=== PATIENT | female | born 1995 | race Caucasian/White ===

== ENCOUNTER 2018-05-07 18:21 | Emergency (ER) | payer OTHER ==
[~2018-05-07] VITALS: Ht 177.8 cm; Wt 120.3 kg
[2018-05-07 18:25] VITALS: BP 108/75
--- NOTE | 2018-05-07 18:28 | NUR ---
AMBULATES WITH BACK TO THE LOBBY
--- NOTE | 2018-05-07 20:24 | NUR ---
PT AMBULATED TO BED 06.
--- NOTE | 2018-05-07 20:25 | NUR ---
PATIENT PRESENTS TO ED WITH C/O PAIN TO THE THROAT. PT ALSO HAS A HEADACHE X 1 DAY. PAIN LEVEL AT THIAS TIME IAS 11/17. PT STATES NO FEVER AT THIS TIME. PT STATES SHE IS ALMOST 6 [id number] WEEKS PT DOES NOT REMEMBER HER LMP. PT STATED SHE IS UNDER AN OBGYN CARE.PT HAS SOME REDNESS TO THE THROAT. PT IS ABLE TO SWALLOW. SKIN IS PINK/WARM/DRY; AAOX4 WITH EVEN AND STEADY GAIT; VSS; PATIENT POSITIONED FOR COMFORT; HOB ELEVATED; BEDRAILS UP X2; BED DOWN. ER MD MADE AWARE OF PT STATUS.
--- NOTE | 2018-05-07 21:51 | NUR ---
Dr. Self evaluating patient at bedside.
[2018-05-07 22:00] VITALS: BP 96/63
--- NOTE | 2018-05-07 22:00 | NUR ---
Patient discharged with v/s stable. Written and verbal after care instructions given and explained. Patient alert, oriented and verbalized understanding of instructions. Ambulatory with steady gait. All questions addressed prior to discharge. ID band removed. Patient advised to follow up with PMD. Rx of Tamiflu given. Patient educated on indication of medication including possible reaction and side effects. Opportunity to ask questions provided and answered.
== END 2018-05-07 22:00 | disposition home or self-care (01) ==
LOC: MED 18:21
DX: O98.512 Other viral diseases complicating pregnancy, second trimester (principal); J11.1 Influenza due to unidentified influenza virus with other respiratory manifestations; Z3A.24 24 weeks gestation of pregnancy
CPT/HCPCS: 36415; 87081; 87804; 99283

== ENCOUNTER 2018-05-09 00:01 | Emergency (ER) | payer OTHER ==
[~2018-05-09] VITALS: Ht 177.8 cm; Wt 120.2 kg
[2018-05-09 00:04] VITALS: BP 126/82
--- NOTE | 2018-05-09 00:05 | NUR ---
ASSUMED CARE OF PT AT THIS TIME. C/O COUGH, CONGESTION, AND SORETHROAT. PT SEEN HERE YESTERDAY FOR SAME COMPLAINT AND DX W/ FLU. AAOX4 WITH EVEN AND STEADY GAIT; PATIENT STATES PAIN OF 0/10; VSS; PATIENT POSITIONED FOR COMFORT; HOB ELEVATED; BEDRAILS UP X2; BED DOWN. ER MD MADE AWARE OF PT STATUS. WILL CONTINUE TO MONITOR.
[2018-05-09] MEDS ORDERED: ACETAMINOPHEN EXTRA STRENGTH 500 MG TAB PO ONE (00:50)
[2018-05-09] MEDS ORDERED: LORATADINE 10 MG TAB PO ONE (00:50)
[2018-05-09] MEDS ORDERED: LIDOCAINE VISCOUS 2% 20 ML UDC PO ONE (00:50)
--- NOTE | 2018-05-09 01:50 | NUR ---
L&D RN AT BEDSIDE FOR T
--- NOTE | 2018-05-09 01:55 | NUR ---
L&D RN WAS UNABLE TO OBTAIN FHT AT THIS TIME. MD JAY NOTIFIED.
--- NOTE | 2018-05-09 02:01 | NUR ---
Dr. Beatty evaluating patient at bedside.
[2018-05-09 02:10] VITALS: BP 117/64
--- NOTE | 2018-05-09 02:10 | NUR ---
Patient discharged with v/s stable. Written and verbal after care instructions given and explained. Patient alert, oriented and verbalized understanding of instructions. Ambulatory with steady gait. All questions addressed prior to discharge. ID band removed. Patient advised to follow up with PMD. Rx of Tylenol, Claritin, and Albuterol inhaler given. Patient educated on indication of medication including possible reaction and side effects. Opportunity to ask questions provided and answered.
== END 2018-05-09 02:10 | disposition home or self-care (01) ==
LOC: MED 00:01
DX: O99.512 Diseases of the respiratory system complicating pregnancy, second trimester (principal)
CPT/HCPCS: 99284

== ENCOUNTER 2018-06-17 02:20 | Inpatient (IN) | payer OTHER ==
[~2018-06-17] VITALS: Ht 176.5 cm; Wt 122.0 kg
[2018-06-17 03:14] VITALS: BP 139/69
[2018-06-17] MEDS ORDERED: PREN-380 PO (03:34)
[2018-06-17] MEDS ORDERED: TERBUTALINE 1 MG/ML VIAL SUBQ ONE ×2 (03:48→05:27)
[2018-06-17] MEDS: TERBUTALINE 1 MG/ML VIAL SUBQ SCH ×2 (03:49→05:22)
[2018-06-17 04:03] LABS: APPEARANCE,URINE SL CLOUDY (CLEAR); BILIRUBIN,URINE NEGATIVE (NEGATIVE); BLOOD, URINE 2+ (NEGATIVE); COLOR,URINE YELLOW (YELLOW); LEUKOCYTE ESTERASE ,URINE NEGATIVE (NEGATIVE); NITRITE, URINE NEGATIVE (NEGATIVE); UGLUCOSE NEGATIVE (NEGATIVE)
[2018-06-17 04:11] LABS: RBC,URINE 11-20 (MOD) /HPF (0-5); WBC,URINE 0-5 (RARE) /HPF (0-5)
[2018-06-17] MEDS ORDERED: AMPICILLIN 2,000 MG in NACL 0.9% 100 ML IV SCH (04:30)
[2018-06-17] MEDS ORDERED: AMPICILLIN 2,000 MG VIAL ONE (04:35)
== END 2018-06-17 06:20 | disposition home or self-care (01) | DRG 566 ==
LOC: MLD 02:20
PROVIDERS: ADMIT Obstetrics & Gynecology; ATTEND Obstetrics & Gynecology
DX: O23.43 Unspecified infection of urinary tract in pregnancy, third trimester (principal); Z3A.28 28 weeks gestation of pregnancy
CPT/HCPCS: 81001; 87086; C1758; J0290; J3105

== ENCOUNTER 2018-07-20 14:15 | Observation (INO) | payer OTHER ==
[~2018-07-20] VITALS: Ht 175.3 cm; Wt 122.9 kg
[~2018-07-20 14:15] MED LIST: PREN-380 PO
[2018-07-20 15:22] VITALS: BP 115/65
== END 2018-07-20 16:20 | disposition home or self-care (01) ==
LOC: MLD 14:15
PROVIDERS: ADMIT Obstetrics & Gynecology; ATTEND Obstetrics & Gynecology
DX: O36.8130 Decreased fetal movements, third trimester, not applicable or unspecified (principal); Z3A.34 34 weeks gestation of pregnancy
CPT/HCPCS: 81000; G0378

== ENCOUNTER 2019-09-26 20:26 | Emergency (ER) | payer OTHER ==
[~2019-09-26] VITALS: Ht 175.3 cm; Wt 133.4 kg
[2019-09-26 20:40] VITALS: BP 126/73
[2019-09-26 21:33] LABS: BASOPHILS % (AUTO) 0.4 % (0.0-2.0); EOSINOPHILS # (AUTO) 0.1 K/uL (0-0.4); HEMATOCRIT 40.1 % (36-48); LYMPHOCYTES # (AUTO) 3.3 K/uL (2.5-16.5); LYMPHOCYTES % (AUTO) 34.6 % (20.5-51.1); MEAN CORPUSCULAR HEMOGLOBIN 26 pg (27-31); MEAN CORPUSCULAR HGB CONC 33 g/dL (33-37); MEAN CORPUSCULAR VOLUME 80.9 fL (80-94); MONOCYTES % (AUTO) 10.1 % (1.7-9.3); NEUTROPHILS # (AUTO) 5.1 K/uL (1.8-7.7); NEUTROPHILS % (AUTO) 53.9 % (42.2-75.2); PLATELET COUNT (AUTO) 307 K/uL (140-450); RED BLOOD CELL COUNT(AUTO) 4.95 MIL/uL (4.20-5.40); RED CELL DISTRIBUTION WIDTH 15.7 % (11.6-13.7); WHITE BLOOD COUNT (AUTO) 9.5 K/uL (4.8-10.8)
[2019-09-26] MEDS: ONDANSETRON 4 MG/2 ML VIAL IVP ONE (21:33)
[2019-09-26] MEDS: NACL 0.9% 1,000 ML IV ONE (21:33)
[2019-09-26] MEDS: KETOROLAC 30 MG/ML VIAL IVP ONE (21:33)
[2019-09-26] MEDS: MORPHINE SULFATE 4 MG/ML SYR IVP ONE (21:34)
[2019-09-26 21:46] LABS: ALBUMIN 3.7 g/dL (3.4-5.0); ANION GAP 7.3 (8-16); CARBON DIOXIDE 31.5 mmol/L (21-32); POTASSIUM 3.8 mmol/L (3.5-5.1); TOTAL BILIRUBIN 0.2 mg/dL (0.0-1.0)
[2019-09-27 00:34] VITALS: BP 99/65
== END 2019-09-27 00:30 | disposition home or self-care (01) ==
LOC: MED 20:26
DX: K80.20 Calculus of gallbladder without cholecystitis without obstruction (principal)
CPT/HCPCS: 36415; 74177; 76705; 80053; 81002; 81025; 83690; 85025; 96374; 96375; 99285; J1885; J2270; J2405; J7030; Q0092; Q9967; 96361

== ENCOUNTER 2019-12-01 07:37 | Emergency (ER) | payer OTHER ==
[~2019-12-01] VITALS: Ht 175.3 cm; Wt 131.5 kg
[2019-12-01 07:41] VITALS: BP 150/99
--- NOTE | 2019-12-01 07:45 | NUR ---
24 Y/O F C/C LUQ ABDOMINAL PAIN, NON RADIATING, 8/10 PAIN, SHARP SENSATION, GREASY FOODS EXARCERBATE PAIN, NOTHING ALLEVIATES X 1 WEEK. PT TAKEN NORCO AND IBUPROFEN WITH NO RELIEF. NKA. HX GALLSTONES FOR THE PAST 2 YEARS. NO SX. NO RX. NO NVD. DENIES DYSURIA. SIDE RAIL X1.
--- NOTE | 2019-12-01 08:02 | NUR ---
ERMD AT BEDSIDE
[2019-12-01] MEDS ORDERED: ONDANSETRON 4 MG/2 ML VIAL IVP ONE (08:05)
[2019-12-01] MEDS ORDERED: KETOROLAC 15 MG/ML VIAL IVP ONE (08:05)
[2019-12-01] MEDS ORDERED: MORPHINE SULFATE 4 MG/ML SYR IVP ONE (08:05)
--- NOTE | 2019-12-01 08:14 | NUR ---
US tech at bedside.
[2019-12-01 08:15] LABS: BASOPHILS % (AUTO) 0.4 % (0.0-2.0); EOSINOPHILS # (AUTO) 0.2 K/uL (0-0.4); EOSINOPHILS % (AUTO) 2.1 % (0.0-4.0); HEMATOCRIT 40.5 % (36-48); LYMPHOCYTES # (AUTO) 2.7 K/uL (2.5-16.5); LYMPHOCYTES % (AUTO) 30.7 % (20.5-51.1); MEAN CORPUSCULAR HEMOGLOBIN 26 pg (27-31); MEAN CORPUSCULAR HGB CONC 32 g/dL (33-37); MONOCYTES # (AUTO) 0.7 K/uL (0.8-1.0); MONOCYTES % (AUTO) 7.4 % (1.7-9.3); NEUTROPHILS # (AUTO) 5.3 K/uL (1.8-7.7); NEUTROPHILS % (AUTO) 59.4 % (42.2-75.2); PLATELET COUNT (AUTO) 307 K/uL (140-450); RED CELL DISTRIBUTION WIDTH 15.3 % (11.6-13.7)
[2019-12-01 08:35] LABS: ALBUMIN 3.6 g/dL (3.4-5.0); TOTAL BILIRUBIN 0.3 mg/dL (0.0-1.0)
--- NOTE | 2019-12-01 08:44 | NUR ---
ULTRASOUND AT BEDSIDE
--- NOTE | 2019-12-01 09:23 | NUR ---
PT RESTING IN BED, SIDE RAIL X1
--- NOTE | 2019-12-01 09:57 | NUR ---
Dr. Soto is re-evaluating the patient at bedside.
[2019-12-01 10:24] VITALS: BP 140/82
--- NOTE | 2019-12-01 10:25 | NUR ---
Patient discharged with v/s stable. Written and verbal after care instructions given and explained. Patient alert, oriented and verbalized understanding of instructions. Ambulatory with steady gait. All questions addressed prior to discharge. ID band removed. Patient advised to follow up with PMD. Rx of IBUPROFEN,TYLENOL given. Patient educated on indication of medication including possible reaction and side effects. Opportunity to ask questions provided and answered.
== END 2019-12-01 10:25 | disposition home or self-care (01) ==
LOC: MED 07:37
DX: R10.11 Right upper quadrant pain (principal); K76.0 Fatty (change of) liver, not elsewhere classified; I12.9 Hypertensive chronic kidney disease with stage 1 through stage 4 chronic kidney disease, or unspecified chronic kidney disease; N18.2 Chronic kidney disease, stage 2 (mild)
CPT/HCPCS: 36415; 76705; 80053; 81002; 81025; 83690; 85025; 96374; 96375; 99284; J1885; J2270; J2405; Q0092